=== PATIENT | male | born 1945 | race Caucasian/White ===

== ENCOUNTER → 2019-05-24 | Day surgery (SDC) | payer OTHER, MEDICAID ==
[2019-05-23 12:31] LABS: BASOPHIL % 0.4 % (0-2); PLATELET COUNT 162 x10^3mcL (130-400); RED CELL DISTRIBUTION WIDTH 17.3 % (11.5-14.5)
[2019-05-23 12:36] LABS: CALCIUM 8.7 mg/dL (8.5-10.1); CARBON DIOXIDE 27.9 mmol/L (21-32); CHLORIDE SERUM 101 mmol/L (98-107); GLUCOSE SERUM 125 mg/dL (74-106); SODIUM SERUM 139 mmol/L (136-145)
[2019-05-23 12:42] LABS: CREATININE SERUM 8.7 mg/dL (0.7-1.3); POTASSIUM SERUM 6.2 mmol/L (3.5-5.1)
--- NOTE | 2019-05-23 12:55 | NUR ---
RECEIVED PREOP TESTING LAB RESULTS. CALLED RESULTS TO DR FRITZ OFFICE SPOKE WITH PARTH. REPORTED K+=6.2, BUN=86, CR=8.7, EEL=[id number]. HB=11.5. ALSO FAXED INFORMATION. PT HAS DIALYSIS TODAY AT 1400. SHE WILL GIVE INFORMATION TO DR FRITZ.
--- NOTE | 2019-05-23 14:15 | NUR ---
RECEIVED ADDITIONAL LAB RESULTS PROTIME=10.3, INR=1.0, PTT=32.7. CHEST XRAY REPORTS CARDIOMEGALLY WITH EVIDENCE OF FLUID OVERLOAD. REPORTS CALLED AND FAXED TO DR FRITZ. COPIES ALSO GIVEN TO ANESTHESIOLOGIST TO REVIEW.
--- NOTE | 2019-05-23 16:53 | NUR ---
SPOKE WITH ROBEROT PÉREZ PACU. HE REVIEWED LAB RESULTS WITH DR DE LA CRUZ ANESTHESIOGIST. TO DO STAT ON ADMISSION IN THE MORNING CBC, CMP AND CXR.
[~2019-05-24] VITALS: Ht 170.2 cm; Wt 56.7 kg
[~2019-05-24] MED LIST: ANORO ELLIPTA1 POW IH; ASPIR 8181 MG PO; CELEXA20 MG PO; GABAPENTIN100 M2 PO; HYDRALAZINE HC100 MG PO; METHADONE HCL10 MG PO; NOR10 PO; PHOS PO; PROGRAF1 MG PO; SIMVASTATIN10 M1 PO; SYNTHROID0.125 MG PO; VENTOLIN H0.09 MG/A1 INH; ZITHROMAX TRI-500 MG PO
[2019-05-24 12:33] VITALS: BP 96/57
[2019-05-24 13:06] LABS: CALCIUM 9.2 mg/dL (8.5-10.1); CARBON DIOXIDE 34.5 mmol/L (21-32); CHLORIDE SERUM 101 mmol/L (98-107); GLUCOSE SERUM 75 mg/dL (74-106); SODIUM SERUM 140 mmol/L (136-145)
[2019-05-24 13:09] LABS: CREATININE SERUM 5.7 mg/dL (0.7-1.3); POTASSIUM SERUM 5.7 mmol/L (3.5-5.1)
[2019-05-24 13:48] LABS: BASOPHIL % 0.3 % (0-2); PLATELET COUNT 178 x10^3mcL (130-400)
[2019-05-24 13:49] LABS: RED CELL DISTRIBUTION WIDTH 17.1 % (11.5-14.5)
[2019-05-24 17:51] VITALS: BP 116/79
== END | disposition home or self-care (01) ==
LOC: DS 12:19 → OR 14:00
PROVIDERS: Surgery
DX: E11.22 Type 2 diabetes mellitus with diabetic chronic kidney disease (principal); I12.0 Hypertensive chronic kidney disease with stage 5 chronic kidney disease or end stage renal disease; N18.6 End stage renal disease; D64.9 Anemia, unspecified; J44.9 Chronic obstructive pulmonary disease, unspecified; G43.909 Migraine, unspecified, not intractable, without status migrainosus; M19.012 Primary osteoarthritis, left shoulder; M19.011 Primary osteoarthritis, right shoulder; K21.9 Gastro-esophageal reflux disease without esophagitis; E78.00 Pure hypercholesterolemia, unspecified; F41.9 Anxiety disorder, unspecified; E11.40 Type 2 diabetes mellitus with diabetic neuropathy, unspecified; E03.9 Hypothyroidism, unspecified; Z99.2 Dependence on renal dialysis; Z90.49 Acquired absence of other specified parts of digestive tract; Z79.82 Long term (current) use of aspirin; Z79.899 Other long term (current) drug therapy; Z94.4 Liver transplant status; Z86.73 Personal history of transient ischemic attack (TIA), and cerebral infarction without residual deficits; Z86.19 Personal history of other infectious and parasitic diseases; Z85.05 Personal history of malignant neoplasm of liver
CPT/HCPCS: 82962; C1768; J0690; J1644; J2001; J2704; J3010; J3490; J7030; Q0092

== ENCOUNTER 2019-08-19 14:12 | Inpatient (IN) | payer OTHER, MEDICAID ==
[~2019-08-19] VITALS: Ht 162.6 cm; Wt 55.1 kg
[2019-08-19 14:18] VITALS: Ht 162.6 cm; Wt 55.1 kg
[2019-08-19 15:05] LABS: PLATELET COUNT 245 x10^3mcL (130-400)
[2019-08-19 15:06] LABS: BASOPHIL % 0 % (0-2)
[2019-08-19 15:13] LABS: CARBON DIOXIDE 32.4 mmol/L (21-32); CHLORIDE SERUM 99 mmol/L (98-107); CREATININE SERUM 3.6 mg/dL (0.7-1.3); GLUCOSE SERUM 77 mg/dL (74-106); POTASSIUM SERUM 4.1 mmol/L (3.5-5.1); SODIUM SERUM 138 mmol/L (136-145)
[2019-08-19 15:18] LABS: ALKALINE PHOSPHATASE 107 U/L (46-116); AST/SGOT 10 U/L (15-37); BILIRUBIN TOTAL 0.39 mg/dL (0.20-1.00)
[2019-08-19 15:21] LABS: ALBUMIN 2.6 g/dL (3.4-5.0); CHOLESTEROL 114 mg/dL (<200)
[2019-08-19 15:31] LABS: ALT/SGPT 8 U/L (16-63)
[2019-08-19 18:32] VITALS: BP 141/73
[2019-08-19 19:21] LABS: PHOSPHOROUS 3.9 mg/dL (2.5-4.9)
[2019-08-19 19:28] LABS: FREE T4 1.36 ng/dL (0.76-1.46); FREE THYROXINE INDEX 3.6 ug/dL (1.4-4.5); T3 TOTAL 0.54 ng/mL; T4(THYROXINE) 9.7 ug/dL (4.7-13.3)
[2019-08-19 20:07] VITALS: BP 153/56
[2019-08-19] MEDS ORDERED: PHOS PO (21:08)
[2019-08-19] MEDS ORDERED: SYNTHROID0.125 MG PO (21:08)
[2019-08-19] MEDS ORDERED: GABAPENTIN100 M2 PO (21:09)
[2019-08-19] MEDS ORDERED: METHADONE HCL10 MG PO (21:10)
[2019-08-19] MEDS ORDERED: PROGRAF1 MG PO (21:11)
[2019-08-19] MEDS ORDERED: NOR10 PO (21:11)
[2019-08-19] MEDS ORDERED: CELEXA20 MG PO (21:12)
[2019-08-19] MEDS ORDERED: HYDRALAZINE HC100 MG PO (21:13)
[2019-08-19] MEDS ORDERED: SIMVASTATIN10 M1 PO (21:14)
[2019-08-19] MEDS ORDERED: ASPIR 8181 MG PO (21:14)
[2019-08-19] MEDS ORDERED: ANORO ELLIPTA1 POW IH (21:15)
[2019-08-19] MEDS ORDERED: VENTOLIN H0.09 MG/A1 INH (21:15)
[2019-08-20 06:15] VITALS: BP 138/56
[2019-08-20 06:32] LABS: BASOPHIL % 0.2 % (0-2); PLATELET COUNT 228 x10^3mcL (130-400)
[2019-08-20 06:54] LABS: CARBON DIOXIDE 32.3 mmol/L (21-32); CHLORIDE SERUM 98 mmol/L (98-107); GLUCOSE SERUM 71 mg/dL (74-106); MAGNESIUM 2.1 mg/dL (1.8-2.4); PHOSPHOROUS 4.5 mg/dL (2.5-4.9); POTASSIUM SERUM 4.7 mmol/L (3.5-5.1); SODIUM SERUM 137 mmol/L (136-145)
[2019-08-20 06:56] LABS: CREATININE SERUM 4.7 mg/dL (0.7-1.3)
[2019-08-20 07:55] LABS: RED CELL DISTRIBUTION WIDTH 16.5 % (11.5-14.5)
[2019-08-20 08:17] VITALS: BP 151/68
[2019-08-20 14:18] VITALS: BP 127/46
[2019-08-20 17:31] VITALS: BP 116/41
[2019-08-20 20:46] VITALS: BP 108/57
[2019-08-21 05:51] VITALS: BP 152/61
[2019-08-21 07:09] LABS: PLATELET COUNT 208 x10^3mcL (130-400)
[2019-08-21 07:17] LABS: CALCIUM 8.8 mg/dL (8.5-10.1); CARBON DIOXIDE 28.4 mmol/L (21-32); CHLORIDE SERUM 90 mmol/L (98-107); MAGNESIUM 2.3 mg/dL (1.8-2.4); PHOSPHOROUS 5.6 mg/dL (2.5-4.9); SODIUM SERUM 128 mmol/L (136-145)
[2019-08-21 07:24] LABS: BASOPHIL % 0 % (0-2); RED CELL DISTRIBUTION WIDTH 16.5 % (11.5-14.5)
[2019-08-21 07:54] LABS: GLUCOSE SERUM 569 mg/dL (74-106)
[2019-08-21 07:56] LABS: CREATININE SERUM 6.3 mg/dL (0.7-1.3)
[2019-08-21 09:31] VITALS: BP 123/56
[2019-08-21 12:40] VITALS: BP 121/55
[2019-08-21 16:52] VITALS: BP 131/56
[2019-08-21 21:35] VITALS: BP 130/52
[2019-08-22 05:37] VITALS: BP 143/63
[2019-08-22 07:05] LABS: PLATELET COUNT 213 x10^3mcL (130-400)
[2019-08-22 07:07] LABS: BASOPHIL % 0 % (0-2); RED CELL DISTRIBUTION WIDTH 16.6 % (11.5-14.5)
[2019-08-22 07:15] LABS: CALCIUM 8.8 mg/dL (8.5-10.1); CARBON DIOXIDE 29.6 mmol/L (21-32); CHLORIDE SERUM 99 mmol/L (98-107); GLUCOSE SERUM 211 mg/dL (74-106); MAGNESIUM 1.8 mg/dL (1.8-2.4); PHOSPHOROUS 5.3 mg/dL (2.5-4.9); POTASSIUM SERUM 4.8 mmol/L (3.5-5.1); SODIUM SERUM 135 mmol/L (136-145)
[2019-08-22 07:16] LABS: CREATININE SERUM 4.6 mg/dL (0.7-1.3)
[2019-08-22 09:21] VITALS: BP 129/45
[2019-08-22 12:23] VITALS: BP 137/63
[2019-08-22 16:25] VITALS: BP 137/63
[2019-08-22 17:06] VITALS: BP 124/55
[2019-08-22 20:14] VITALS: BP 147/68
[2019-08-23 05:59] VITALS: BP 150/55
[2019-08-23 06:23] LABS: PLATELET COUNT 205 x10^3mcL (130-400)
[2019-08-23 06:41] LABS: CALCIUM 8.4 mg/dL (8.5-10.1); CARBON DIOXIDE 29.3 mmol/L (21-32); CHLORIDE SERUM 95 mmol/L (98-107); GLUCOSE SERUM 245 mg/dL (74-106); PHOSPHOROUS 5.5 mg/dL (2.5-4.9); POTASSIUM SERUM 4.4 mmol/L (3.5-5.1); SODIUM SERUM 133 mmol/L (136-145)
[2019-08-23 07:07] LABS: CREATININE SERUM 5.7 mg/dL (0.7-1.3)
[2019-08-23 07:24] LABS: BASOPHIL % 0 % (0-2); RED CELL DISTRIBUTION WIDTH 17.1 % (11.5-14.5)
[2019-08-23 09:39] VITALS: BP 135/61
[2019-08-23] MEDS ORDERED: ZITHROMAX TRI-500 MG PO (12:27)
[2019-08-23 13:38] VITALS: BP 135/61
[2019-08-23 16:46] VITALS: BP 114/75
[2019-08-23 20:38] VITALS: BP 159/79
[2019-08-24 06:12] VITALS: BP 168/69
[2019-08-24 09:37] VITALS: BP 159/63
[2019-08-24 12:35] VITALS: BP 154/80
== END 2019-08-24 16:24 | disposition home health service (06) | DRG 193 ==
LOC: ED 14:12 → DU 18:54 → MU 18:54 → DU 19:49 → MU 08-22 10:32
PROVIDERS: General Practice; ADMIT Internal Medicine
DX: J18.9 Pneumonia, unspecified organism (principal); N18.6 End stage renal disease; J96.01 Acute respiratory failure with hypoxia; J44.1 Chronic obstructive pulmonary disease with (acute) exacerbation; I12.0 Hypertensive chronic kidney disease with stage 5 chronic kidney disease or end stage renal disease; J90 Pleural effusion, not elsewhere classified; E44.0 Moderate protein-calorie malnutrition; Z94.4 Liver transplant status; D64.9 Anemia, unspecified; E03.9 Hypothyroidism, unspecified; F32.9 Major depressive disorder, single episode, unspecified; E78.5 Hyperlipidemia, unspecified; H54.40 Blindness, one eye, unspecified eye; Z79.899 Other long term (current) drug therapy; Z99.81 Dependence on supplemental oxygen; Z68.21 Body mass index [BMI] 21.0-21.9, adult; Z87.891 Personal history of nicotine dependence
CPT/HCPCS: 82962; 83880; 84439; 87804; 94150; 97116-GP; 97530-GP; G0378; G0480; J0456; J1815; J1956; J2405; J2543; J2920; J2930; J3490; J7030; J7050; J7507; J7620; Q0092

== ENCOUNTER 2019-11-01 17:06 | Inpatient (IN) | payer OTHER, MEDICAID ==
[~2019-11-01] VITALS: Ht 162.6 cm; Wt 52.4 kg
--- NOTE | 2019-11-01 17:53 | NUR ---
PATIENT WHEELCHAIRED TO ROOM WITH 3 L NASAL CANNULA. PATIENT FREE FROM ANY SIGNS OF DISTRESS AT THIS TIME. PATIENT CONFUSED AT THIS TIME. PATIENT PLACED ON SEALS ENGRAVER, NSR. PATIENT AND GRANDSON ORIENTED TO ROOM AND CALL LIGHT. WILL CONTINUE TO MONITOR.
--- NOTE | 2019-11-01 18:26 | NUR ---
PATIENT TO XRAY AT THIS TIME.
[2019-11-01 18:33] LABS: BASOPHIL % 0.7 % (0-2); PLATELET COUNT 148 x10^3mcL (130-400); RED CELL DISTRIBUTION WIDTH 17.2 % (11.5-14.5)
[2019-11-01 18:45] LABS: ALKALINE PHOSPHATASE 143 U/L (46-116); ALT/SGPT 18 U/L (16-63); AST/SGOT 25 U/L (15-37); BILIRUBIN TOTAL 0.4 mg/dL (0.20-1.00); CALCIUM 8.6 mg/dL (8.5-10.1); CARBON DIOXIDE 34.7 mmol/L (21-32); CHLORIDE SERUM 97 mmol/L (98-107); HDL CHOLESTEROL 51 mg/dL (40-60); POTASSIUM SERUM 4.8 mmol/L (3.5-5.1); SODIUM SERUM 135 mmol/L (136-145)
[2019-11-01 18:50] LABS: ALBUMIN 2.8 g/dL (3.4-5.0); CHOLESTEROL 107 mg/dL (<200)
[2019-11-01 18:51] LABS: CREATININE SERUM 4.9 mg/dL (0.7-1.3); GLUCOSE SERUM 47 mg/dL (74-106)
--- NOTE | 2019-11-01 19:00 | NUR ---
BLOOD SUGAR DONE AT THIS TIME AND READING 37, DR JORDAN NOTIFIED, AND HE WILL ORDER D50, WILL AWAIT ORDERS AT THIS TIME.
--- NOTE | 2019-11-01 20:38 | NUR ---
PT RESTING IN BED WITH EYES CLOSED WITH NO SIGNS OF DISTRESS.
--- NOTE | 2019-11-01 21:15 | NUR ---
PT UP ON BSC.
[2019-11-01 21:24] LABS: MAGNESIUM 2.3 mg/dL (1.8-2.4); PHOSPHOROUS 3.8 mg/dL (2.5-4.9)
[2019-11-01 21:25] LABS: CHOLESTEROL/HDL RATIO 2.1; FREE T4 1.08 ng/dL (0.76-1.46); T4(THYROXINE) 7.3 ug/dL (4.7-13.3)
[2019-11-01 21:27] LABS: T3 TOTAL 0.46 ng/mL
--- NOTE | 2019-11-01 21:30 | NUR ---
REPORT GIVEN TO RUBIA PÉREZ.
[2019-11-01 21:34] LABS: FREE THYROXINE INDEX 2.7 ug/dL (1.4-4.5)
--- NOTE | 2019-11-01 22:05 | NUR ---
RECEIVED PT FROM ED VIA HUMERA, CAME IN DUE TO WEAKNESS. AAOX4. C/O 4/10 HEADACHE. DENIES DIZZINESS. ABLE T0 FOLLOW COMMANDS. SPEECH IS CLEAR. NO FACIAL DROOP/ARM DRIFT NOTED. HAND MANAGER DRIVE ARE EQUAL. NO SOB NOTED, LUNG SOUNDS CTA, O2 SAT=93%, ON 2LPM/NC. DENIES CHEST PAIN/PRESSURE, SR ON THE MONITOR. BJ=233/85, RE-[id number]=959/87. W/ TRACE EDEMA ON BLE. DENIES ABDOMINAL PAIN. LAST BM-4 DAYS AGO. STATED THAT HE HAS POOR APPETITE X5 DAYS. ABDOMEN IS SOFT. C/O CONSTIPATION, ABLE TO PASS SOME GAS. ANURIC. ON HD EVERY MWF, LAST HD ON 10/31/19. W/OLD AV SHUNT ON THE RUE AND FUNCTIONING AV SHUNT ON THE LUE (BRUIT AND THRILL PRESENT. IV SITE ON THE RUE IS PATENT AND INTACT. SIDE RAILS UPX2. CALL LIGHT ON REACH. ENDORSED TO PRIMARY NURSE RUBIA FOR CONTINUITY OF CARE
[2019-11-01 22:31] VITALS: BP 202/87
[2019-11-01 22:40] VITALS: Ht 162.6 cm; Wt 52.4 kg
[2019-11-02] VITALS (7 sets, daily range): BP systolic 121–172; BP diastolic 68–84
--- NOTE | 2019-11-02 01:45 | NUR ---
PT RESTING. BREATHING EVEN AND UNLABORED ON NC 2L/MIN. NO SOB NOTED. NO ACUTE DISTRESS NOTED. CALL BUTTON WITHIN REACH. SAFETY PRECAUTIONS IN PLACE. WILL COTNINUE TO MONITOR.
[2019-11-02 06:26] LABS: BASOPHIL % 0.3 % (0-2); PLATELET COUNT 161 x10^3mcL (130-400)
--- NOTE | 2019-11-02 06:26 | NUR ---
PT SLEPT MOST OF THE NIGHT WITH NO SIGSN OF ACUTE DISTRESS. BREATHING EVEN AND UNLABORED ON NC 2L/MIN. NO SOB NOTED. IV PATENT, SL. MEDICATED PER EMAR. PT BLOOD SUGAR THIS AM 69, SNACKS PROVIDED. RECHECKED BLOOD SUGAR RESULT 138. CALL BUTTON WITHIN REACH. SAFETY PRECAUTIONS IN PLACE. WILL CONTINUE TO MONITOR AND ENDORSE CARE TO DAY SHIFT RN.
[2019-11-02 06:41] LABS: CALCIUM 8.3 mg/dL (8.5-10.1); CARBON DIOXIDE 34.1 mmol/L (21-32); CHLORIDE SERUM 97 mmol/L (98-107); GLUCOSE SERUM 122 mg/dL (74-106); MAGNESIUM 2.4 mg/dL (1.8-2.4); PHOSPHOROUS 3.8 mg/dL (2.5-4.9); POTASSIUM SERUM 4.7 mmol/L (3.5-5.1); SODIUM SERUM 134 mmol/L (136-145)
[2019-11-02 06:48] LABS: RED CELL DISTRIBUTION WIDTH 17.2 % (11.5-14.5)
[2019-11-02 06:49] LABS: CREATININE SERUM 5.6 mg/dL (0.7-1.3)
--- NOTE | 2019-11-02 07:30 | NUR ---
RECEIVED HAND OFF REPORT FROM NIGHT NURSE. PATIENT LAYING SEMI-FOLWERS IN BED AWAKE TO VOICE, A/O X4 FOLLOWS COMMANDS, DENIES PAIN. BLOOD SUGARS HAVE BEEN STABLIZED PER MILL OPERATOR HELPER. ENCOURAGED PATIENT TO EAT BREAKFAST WHEN ARRIVES. PATIENT STATING HE FEELS TIRED FROM NOT HAVING ENOUGH SLEEP. TELE 9 PRESENT ON PATIENT CHEST, SHOWING SINUS TACHYCARDIA. SALINE LOCKED TO RIGHT FORE ARM 20G. ACTIVE SHUNT TO LEFT ARM. CALL LIGHT WITHIN REACH, WILL CONTINUE TO MONITOR
--- NOTE | 2019-11-02 07:37 | NUR ---
PT AWAKE, NO SIGNS OF ACUTE DISTRESS. ENDORSED CARE TO DAY SHIFT RN, ALL QUESTIONS ADDRESSED.
--- NOTE | 2019-11-02 09:20 | NUR ---
ADMINSITERED MEDICATION PER MAR. EDUCATED PATIENT ON MEDIATIONS. PATIENT STATING THAT HE IS TIRED AND DID NOT SLEEP WELL. ATE ENTIRE BREAKFAST WITH NO ISSUES. WALKED WITH PT, CALL LIGHT WITHIN REACH
--- NOTE | 2019-11-02 12:02 | NUR ---
ADMINSTERED MEDICATION PER DEC. BS CHECK WAS 121. NO COVERAGE NEEDED. BLOOD PRESSURE IS ELEVATED. ADMINSTERE CLONIDINE PRN FOR BLOOD PRESSURE. WILL REEVALUATE CALLED [facility] FOR FAXED VERIFICATION OF PATIENT'S PREVIOUS METHADONE TREATMENTS AND DOSAGES. PER DR PUENTE: PLANNING TO CONTINUE METHADONE TREATMENTS AT LOWER DOSE
--- NOTE | 2019-11-02 13:26 | NUR ---
CALLED AND SPOKE TO KARUNA(DIALYSIS NURSE) MADE HER AWARE OF NEW DIALYSIS ORDER FOR THIS PT PER DR.JIN GUEVARA(COMPONENT ASSEMBLER) ORDER. SHAUN PÉREZ ASSIGNED TO THIS PT MADE AWARE OF ABOVE.
--- NOTE | 2019-11-02 14:26 | NUR ---
DR CHIN UPDATED SPECIAL INSTRUCTIONS ABOUT METHADONE FOR PATIENT. CALLED PHARMACY TO UPDATE
--- NOTE | 2019-11-02 14:59 | NUR ---
Nutrition Education: Patient appeared very restless and it was hard for him to pay attention to the diet education. However, patient was answering questions. Renal+ Diabetic diet education wa sprovided along with [facility] handout on ' DM and CKD stages 1 through 4- nutrition guidelines'. Patient verbalized underatnding however it appeared as if patient was restless and it was difficult to explain all the information. RN has been informed to call RD if patient needs further explanation of the diet. Patient will have a complete nutrition tone;iation and will be evaluated as high risk due 1/-4.
--- NOTE | 2019-11-02 15:41 | NUR ---
RANDI'S DOSE OF METHADONE WAS BROUGHT UP BY PHARMACY, SIGNED FOR AND ADMINSITERED TO MAXIMILIANO. BLOOD SUGAR CHECKED RESULT WAS 114 CALL LIGHT WITHIN REACH OF PATIENT
--- NOTE | 2019-11-02 16:38 | NUR ---
FAMILY MEMEBER CALLED, SPOKE WITH DAUGHTER AND UPDATED ABOUT PATIENT CONDITION. WILL BE STAYING THE NIGHT IN HOSPITAL
--- NOTE | 2019-11-02 19:33 | NUR ---
RECEIVED PT FROM DAY SHIFT RN. PT AAOX4 DENIES ZENDEJAS/DIZZINESS. TELE #9 SR ON MONITOR. PT DENIES CHEST PAIN/PRESSURE. BREATHING EVEN AND UNLABORED ON NC 2L/MIN. NO SOB NOTED. IV PATENT, SL. PT SITTING UP HAVING DINNER. NO ACUTE DISTRESS NOTED. CALL BUTTON WITHIN REACH. SAFETY PRECAUTIONS IN PLACE. WILL CONTINUE TO MONITOR.
--- NOTE | 2019-11-02 20:26 | NUR ---
HD NURSE BECKMAN AT BEDSIDE.
--- NOTE | 2019-11-02 23:30 | NUR ---
HD DONE AT THIS TIME, 2L OUT.
[2019-11-03 06:03] VITALS: BP 144/59
--- NOTE | 2019-11-03 06:06 | NUR ---
PT SLEPT MOST OF THE NIGHT WITH NO SIGSN OF ACUTE DISTRESS. BREATHING EVEN AND UNLABORED ON NC 2L/MIN. NO SOB NOTED. IV PATENT, SL. MEDICATED PER EMAR. CALL BUTTON WITHIN REACH. SAFETY PRECAUTIONS IN PLACE. WILL CONTINUE TO MONITOR AND ENDORSE CARE TO DAY SHIFT RN.
[2019-11-03 06:22] LABS: BASOPHIL % 0.3 % (0-2); PLATELET COUNT 166 x10^3mcL (130-400)
[2019-11-03 06:39] LABS: RED CELL DISTRIBUTION WIDTH 17.7 % (11.5-14.5)
[2019-11-03 07:10] LABS: CALCIUM 8.3 mg/dL (8.5-10.1); CARBON DIOXIDE 34.7 mmol/L (21-32); CHLORIDE SERUM 101 mmol/L (98-107); GLUCOSE SERUM 126 mg/dL (74-106); MAGNESIUM 2.2 mg/dL (1.8-2.4); PHOSPHOROUS 3.6 mg/dL (2.5-4.9); POTASSIUM SERUM 4.7 mmol/L (3.5-5.1); SODIUM SERUM 137 mmol/L (136-145)
[2019-11-03 07:17] LABS: CREATININE SERUM 4.1 mg/dL (0.7-1.3)
--- NOTE | 2019-11-03 07:30 | NUR ---
RECEIVED PATIENT, IN BED. AAOX4. NO ACUTE RESP DISTRESS NOTED. REMAINS ON 2L NC. HOB ELEVATED. NO C/O OF PAIN AT THIS TIME. DISCUSSED PLAN OF CARE WITH PATIENT. VERBALIZED UNDERSTANDING. L EYE CLOSED NOTED DUE TO BLINDNESS. IV TO RFA INTACT. NO INFILTRATION OR REDNESS NOTED. SALINE LOCK. SAFETY PRECAUTION IN PLACE. CALL LIGHT WITHIN REACH. WILL CONTINUE TO MONITOR.
--- NOTE | 2019-11-03 07:38 | NUR ---
PT AWAKE DENIES PAIN. NO ACUTE DISTRESS NOTED. CALL BUTTON WITHIN REACH. SAFETY PRECAUTIONS IN PLACE. ENDORSED CARE TO DAY SHIFT RN, ALL QUESTIONS ADDRESSED.
[2019-11-03] MEDS ORDERED: MEGESTROL AC40 MG/ML PO (07:55)
[2019-11-03 08:49] VITALS: BP 136/50
--- NOTE | 2019-11-03 09:30 | NUR ---
PATIENT SEEN AMBULATING BACK TO BED FROM RESTROOM. PER PATIENT, HE HAD A BOWEL MOVEMENT. NO ACUTE RESP DISTRESS NOTED. NO C/O PAIN AT THIS TIME. IV TO JAZIEL INTACT, NO INFILTRATION NOTED. PATIENT IN STABLE CONDITION. SAFETY PRECAUTION IN PLACE. CALL LIGHT WITHIN REACH. WILL CONTINUE TO MONITOR.
[2019-11-03 11:35] VITALS: BP 136/50
--- NOTE | 2019-11-03 11:45 | NUR ---
DISCHARGE HOME INSTRUCTIONS GIVEN TO PATIENT. PATIENT VERBALIZED UNDERSTANDING. ALL QUESTIONS AND CONCERNS ADDRESSED. IV TO JAZIEL DISCONTINUED. CATHETER INTACT, TOLERATED WELL. GAUZE AND TAPE IN PLACE. TELE MONITOR RETURNED TO MONITOR STATION. INSTRUCTED PATIENT TO CALL PRIOR LEAVING THE UNIT.
[2019-11-03 12:35] VITALS: BP 131/53
--- NOTE | 2019-11-03 13:00 | NUR ---
SPOKE WITH DR. CHIN REGARDING PRESCRIBED [facility]. PER DR. CHIN, TELL [facility] THAT HE IS ORDERING THE LIQUID FORM 200 MG PO BID FOR 30 DAYS. WILL CALL [facility] AND CLARIFY GIVEN ORDER.
--- NOTE | 2019-11-03 13:00 | NUR ---
PATIENT IS BEING DISCHARGED IN STABLE CONDITION. ID BANDS REMOVED. ALL NEEDS MET. ALL BELONGINGS SENT HOME WITH PATIENT. ACCOMPANIED PATIENT AND FAMILY TO DISCHARGE OFFICE BY ELISA RIVERA.
== END 2019-11-03 13:11 | disposition home or self-care (01) | DRG 682 ==
LOC: ED 17:06 → DU 20:28
PROVIDERS: Emergency Medicine; Internal Medicine Nephrology; ADMIT Internal Medicine
PROC: 5A1D70Z Performance of Urinary Filtration, Intermittent, Less than 6 Hours Per Day (ICD-10-PCS; principal; 2019-11-02)
DX: I12.0 Hypertensive chronic kidney disease with stage 5 chronic kidney disease or end stage renal disease (principal); N18.6 End stage renal disease; G93.41 Metabolic encephalopathy; E43 Unspecified severe protein-calorie malnutrition; E87.1 Hypo-osmolality and hyponatremia; Z94.4 Liver transplant status; F11.20 Opioid dependence, uncomplicated; E16.2 Hypoglycemia, unspecified; D53.9 Nutritional anemia, unspecified; J44.9 Chronic obstructive pulmonary disease, unspecified; H44.522 Atrophy of globe, left eye; E03.9 Hypothyroidism, unspecified; E78.5 Hyperlipidemia, unspecified; F32.9 Major depressive disorder, single episode, unspecified; Z91.15 Patient's noncompliance with renal dialysis; Z99.2 Dependence on renal dialysis; Z79.82 Long term (current) use of aspirin; Z68.24 Body mass index [BMI] 24.0-24.9, adult; Z87.891 Personal history of nicotine dependence; Z99.81 Dependence on supplemental oxygen
CPT/HCPCS: 82962; 83880; 84439; 94150; 97116-GP; 97530-GP; G0378; J0696; J3490; J7060; J7507